=== PATIENT | female | born 1965 | race Caucasian/White ===

== ENCOUNTER 2017-09-11 21:10 | Inpatient (IN) | payer OTHER ==
[~2017-09-11] VITALS: Ht 154.9 cm; Wt 123.8 kg
--- NOTE | 2017-09-11 21:30 | NUR ---
PT ARRIVED BY AMBULANCE VIA GURNEY FROM [place]. PT IS AAOX4, SISTER IS AT THE BEDSIDE. ON 02 2L NC. IV ACCESS IS INTACT, PATENT AND ASYMPTOMATIC. NO SIGNS OF ACUTE DISTRESS. MRSA OF NARES COLLECTED. SKIN IS WARM TO TOUCH. RESPIRATIONS EVEN AND UNLABORED. SKIN COLOR APPROPRIATE TO ETHNICITY. URBAN CATH IN PLACE. FIVE INCISIONS ON THE ABDOMEN OPEN TO AIR POST GASTRIC BYPASS, AND INCISION ON BELLY BUTTON POST HERNIA REPAIR. PLAN OF CARE DISCUSSED, PT VERBALIZED UNDERSTANDING. BED IN LOW POSITION, BILATERAL HALF SIDE RAILS UP, CALL LIGHT WITHIN REACH, WILL CONTINUE TO MONITOR.
[2017-09-11 22:30] VITALS: BP 146/70
--- NOTE | 2017-09-11 22:50 | NUR ---
PAGED DR LONG, PT CURRENTLY HAS NO ORDERS IN PLACE. WILL WAIT FOR CALL BACK
[2017-09-11] MEDS: NACL 0.9% 1,000 ML IV SCH (23:04)
[2017-09-11] MEDS ORDERED: HYDROcodone/APAP 5/325 MG 1 TAB TAB PO PRN (23:05)
[2017-09-11] MEDS ORDERED: ACETAMINOPHEN 325 MG TAB PO PRN (23:05)
[2017-09-11] MEDS ORDERED: DEXTROSE 50% 50 ML SYR IVP PRN (23:05)
--- NOTE | 2017-09-11 23:19 | NUR ---
PT IS SLEEPING, EASY TO AROUSE. NO SIGNS OF ACUTE DISTRESS. BED IN LOW POSITION, BILATERAL HALF SIDE RAILS UP, CALL LIGHT WITHIN REACH, WILL CONTINUE TO MONITOR.
[2017-09-11 23:50] LABS: HEMATOCRIT 38.8 % (36-48); HEMOGLOBIN 12.7 g/dL (12.0-16.0); MEAN CORPUSCULAR HEMOGLOBIN 30 pg (27-31); MEAN CORPUSCULAR HGB CONC 33 g/dL (33-37); MEAN CORPUSCULAR VOLUME 90 fL (80-94); PLATELET COUNT (AUTO) 184 K/uL (140-450); RED BLOOD CELL COUNT(AUTO) 4.31 MIL/uL (4.20-5.40); RED CELL DISTRIBUTION WIDTH 13.2 % (11.6-13.7); WHITE BLOOD COUNT (AUTO) 9.2 K/uL (4.8-10.8)
[2017-09-12] VITALS: BP 147/70
[2017-09-12 00:06] LABS: LYMPHOCYTES % (MANUAL) 18 % (20-46); MONOCYTES % (MANUAL) 3 % (5-12)
[2017-09-12 00:19] LABS: ALBUMIN 2.5 g/dL (3.4-5.0); ANION GAP 10.9 (8-16); CREATININE 0.7 mg/dL (0.6-1.3); POTASSIUM 3.9 mmol/L (3.5-5.1); TOTAL BILIRUBIN 0.5 mg/dL (0.0-1.0)
[2017-09-12] MEDS: LORazepam 2 MG/ML VIAL IVP PRN ×2 (00:29→05:08)
[2017-09-12] MEDS: ONDANSETRON 4 MG/2 ML VIAL IVP PRN (00:29)
--- NOTE | 2017-09-12 00:30 | NUR ---
UNABLE TO GIVE NORCO, MEDICATION CRUSHED PER PT REQUEST, HOWEVER PT REFUSED TO TAKE ORAL MEDICATION DUE TO GASTRIC BYPASS SURGERY LAST MONDAY, PT STATES SHE FEARS SHE WILL THROW UP MEDICATION IF TAKEN BY MOUTH. ADMINISTERED ZOFRAN FOR NAUSEA AND ATIVAN FOR ANXIETY IVP, PT TOLERATED WELL. WILL CONTINUE TO MONITOR. NORCO WAS NOT ADMINISTERED AND WAS THEN WASTED WITH RN WITNESS.
--- NOTE | 2017-09-12 01:17 | NUR ---
PT IS SLEEPING, EASY TO AROUSE. NO SIGNS OF ACUTE DISTRESS, BED IN LOW POSITION, BILATERAL HALF SIDE RAILS UP, CALL LIGHT WITHIN REACH, WILL CONTINUE TO MONITOR.
--- NOTE | 2017-09-12 02:56 | NUR ---
PT IS SLEEPING, EASY TO AROUSE, NO SIGNS OF ACUTE DISTRESS. BED IN LOW POSITION, BILATERAL HALF SIDE RAILS UP, CALL LIGHT WITHIN REACH, WILL CONTINUE TO MONITOR.
[2017-09-12 04:00] VITALS: BP 149/76
[2017-09-12] MEDS: BLOOD GLUCOSE MONITORING 1 DEV DEV FS SCH ×3 (06:31→20:59)
[2017-09-12] MEDS: INSULIN LISPRO SLIDING SCALE 100 UNITS/ML VIAL SUBQ PRN ×3 (06:35→21:10)
[2017-09-12 06:57] LABS: BASOPHILS # (AUTO) 0.1 K/uL (0.00-0.22); BASOPHILS % (AUTO) 1.8 % (0.0-2.0); EOSINOPHILS % (AUTO) 0.5 % (0.0-4.0); HEMATOCRIT 39.1 % (36-48); HEMOGLOBIN 12.9 g/dL (12.0-16.0); LYMPHOCYTES % (AUTO) 12.8 % (20.5-51.1); MEAN CORPUSCULAR HEMOGLOBIN 30 pg (27-31); MEAN CORPUSCULAR HGB CONC 33 g/dL (33-37); MEAN CORPUSCULAR VOLUME 91 fL (80-94); MONOCYTES # (AUTO) 0.7 K/uL (0.8-1.0); MONOCYTES % (AUTO) 8.5 % (1.7-9.3); NEUTROPHILS # (AUTO) 6.4 K/uL (1.8-7.7); NEUTROPHILS % (AUTO) 76.4 % (42.2-75.2); PLATELET COUNT (AUTO) 194 K/uL (140-450); RED BLOOD CELL COUNT(AUTO) 4.28 MIL/uL (4.20-5.40); RED CELL DISTRIBUTION WIDTH 13.4 % (11.6-13.7); WHITE BLOOD COUNT (AUTO) 8.2 K/uL (4.8-10.8)
--- NOTE | 2017-09-12 07:05 | NUR ---
ENDORSED PT TO AM NURSE FOR CONTINUITY OF CARE. PT IN STABLE CONDITION.
[2017-09-12 07:07] LABS: ALBUMIN 2.5 g/dL (3.4-5.0); ANION GAP 7.7 (8-16); CARBON DIOXIDE 33.2 mmol/L (21-32); CREATININE 0.7 mg/dL (0.6-1.3); MAGNESIUM 2.1 mg/dL (1.8-2.4); POTASSIUM 3.9 mmol/L (3.5-5.1); TOTAL BILIRUBIN 0.5 mg/dL (0.0-1.0)
--- NOTE | 2017-09-12 07:07 | NUR ---
RECEIVED REPORT FROM RURAL MAIL CARRIER RN. PATIENT IS SLEEPING AT THIS TIME, HAS NASAL CANNULA AT 2L. NO SIGNS AND SYMPTOMS OF ACUTE RESPIRATORY DISTRESS NOTED AT THIS TIME. PATIENT HAS NS INFUSING AT 75 ML/HR TO RIGHT AC 20G, SITE IS CLEAN, DRY, PATENT AND INTACT. BED ALARM IS ON, BED IN LOWEST POSITION, SIDERAILS UP X3, CALL LIGHT PLACED WITHIN REACH. WILL CONTINUE TO MONITOR PATIENT.
[2017-09-12 08:00] VITALS: BP 151/73
--- NOTE | 2017-09-12 08:50 | NUR ---
WOUND CARE EVALUATION NOTE: REASON FOR EVALUATION ABDOMINAL WOUNDS COMPLETE SKIN ASSESSMENT DONE ON THIS 52 Y/O FEMALE PATIENT ADMITTED TO [facility], PT IS CONFUSE AND LETHARGY ,UNABLE TO ANSWER QUESTIONS, AND ADMISSION H&P AND LABS ARE NOT AVAILABLE AT THIS TIME.CURRENT MEDS INCLUDE LORAZEPAM, INSULIN, AND ENOXAPARIN. SKIN WARM TO TOUCH WNL, SKIN TURGOR GOOD. CAPILLARY REFILLED <3 SEC. TOENAILS ARE SHORT, NO HAIR GROWTH, BILATERAL DORSAL PEDAL PULSES PRESENT. FC #[id number] PATENT WITH MODERATE AMOUNT OF YELLOW CLEAR URINE OUTPUT NOTICE. PLAN OF CARE DISCUSSED WITH PRIMARY RN. INTEGUMENTARY: BILATERAL LOWER EXTREMITIES -DRYNESS S/P GASTRIC BYPASS WITH 5 CLOSED INCISIONS LARGEST MEASUREMENT 0.3X 4 CM AND SMALLEST 0.3X1.5 CM, DRY AND CLEAN, NO S/S INFECTION S/P HERNIA REPAIR DRY INCISION MEASURE 2CM IN LENGTH ON BELLY BUTTON, DRY AND CLEAN, NO S/S INFECTION RECOMMENDATIONS: -CLEANSE ABDOMINAL CLOSED INCISIONS WITH NS. PAT DRY AND APPLY BETADINE LUKE. STEFANIE QD -TURN AND REPOSITION PATIENT Q 2H -ASSESS AND MONITOR SKIN CONDITION DURING POSITION CHANGE -OFFLOAD BILATERAL HEELS BY PLACING PILLOWS UNDER CALVES AT ALL TIMES, UNLESS OTHERWISE CONTRAINDICATED -PRESSURE REDISTRIBUTION SURFACE THERAPY -KEEP SKIN CLEAN AND DRY AT ALL TIMES. RECOMMENDATIONS DISCUSSED WITH PRIMARY RN AND DR. PEREZ WILL FOLLOW UP PATIENT Q7- 10 DAYS AND PRN. PLEASE CONTACT WOUND CARE NURSE FOR ANY CONCERNS, QUESTIONS AND CHANGES IN SKIN CONDITION.
--- NOTE | 2017-09-12 09:21 | NUR ---
PATIENT HAS BEEN SCREENED AND CATEGORIZED HIGH NUTRITION RISK. PATIENT WILL BE SEEN WITHIN 1-2 DAYS OF ADMISSION. 09/12/17-09/13/[address]
[2017-09-12] MEDS: ENOXAPARIN 40 MG/0.4 ML SYR SUBQ SCH (09:50)
[2017-09-12 12:00] VITALS: BP 158/88
[2017-09-12] MEDS: NACL 0.9% 1,000 ML IV SCH (12:24)
[2017-09-12] MEDS: NACL 0.9% IRR 250 ML BOTTLE IR SCH (13:00)
--- NOTE | 2017-09-12 13:45 | NUR ---
CLINICAL REVIEW FAXED TO [facility] AT [phone]
[2017-09-12 16:00] VITALS: BP 154/79
[2017-09-12] MEDS ORDERED: DEXTROSE 50% 50 ML SYR IVP PRN (17:50)
[2017-09-12] MEDS ORDERED: PRAV40TA4 PO (17:56)
[2017-09-12] MEDS ORDERED: HYDR12.543 PO (17:56)
[2017-09-12] MEDS ORDERED: OMEP20EC6 PO (17:56)
[2017-09-12] MEDS ORDERED: LOSA100T25 (17:56)
--- NOTE | 2017-09-12 19:28 | NUR ---
ENDORSED PATIENT TO PUBLIC HEALTH PROGRAM MANAGER RN FOR CONTINUITY OF CARE. PATIENT IN STABLE CONDITION.
--- NOTE | 2017-09-12 19:29 | NUR ---
RECEIVED REPORT FROM DAY SHIFT RN AT PT BEDSIDE FOR CONTINUITY OF CARE. PT IS A/OX4, ON 2L O2 VIA NASAL CANNULA. PT HAS A LEFT HAND IV 22G INFUSING NS@75ML/HR. PT HAS 5 ABDOMINAL INCISIONS S/P GASTRIC BYPASS. SAFETY PRECAUTIONS IN PLACE. UPDATED BOARD. DISCUSSED PLAN OF CARE WITH PT, PT VERBALIZED UNDERSTANDING. VITAL SIGNS WITHIN NORMAL LIMITS. PT IN STABLE CONDITION, NO SIGNS OF DISTRESS NOTED. BED IN LOW POSITION, CALL LIGHT WITHIN REACH. WILL CONTINUE TO MONITOR.
[2017-09-12 20:00] VITALS: BP 152/67
[2017-09-12] MEDS: HYDROcodone/APAP 5/325 MG 1 TAB TAB PO PRN (21:00)
[2017-09-12] MEDS: INSULIN DETEMIR 100 UNITS/ML 10 ML VIAL SUBQ SCH (21:03)
--- NOTE | 2017-09-12 21:15 | NUR ---
PT. PLACED ON BIPAP /8 RATE 14 FIO2 AT 25%, MACHINE ONLY GOES BY 5% INCREMENTS. PT STILL SNORING LOUD AT THESE SETTING. SAO2 FLUCTUATES FROM 87% TO 98% HR 85 BS CLEAR UPPER LOBES AND DECREASED AT BASES WHEN PT NOT SNORING
[2017-09-13] VITALS: BP 157/72
[2017-09-13] MEDS: NACL 0.9% 1,000 ML IV SCH ×3 (01:44→17:30)
[2017-09-13 04:00] VITALS: BP 148/78
--- NOTE | 2017-09-13 05:09 | NUR ---
PT KEEPS TAKING OFF BIPAP MASK THROUGHOUT ENTIRE RESTAURANT MANAGER. ADVISED PT TO LEAVE MASK ON AND SHE VERBALIZED UNDERSTANDING. PT IN STABLE CONDITION, NO SIGNS OF DISTRESS NOTED. BED IN LOW POSITION, CALL LIGHT WITHIN REACH. WILL CONTINUE TO MONITOR.
[2017-09-13] MEDS: BLOOD GLUCOSE MONITORING 1 DEV DEV FS SCH ×4 (06:51→20:13)
[2017-09-13] MEDS: HYDROcodone/APAP 5/325 MG 1 TAB TAB PO PRN (06:51)
[2017-09-13] MEDS: INSULIN LISPRO SLIDING SCALE 100 UNITS/ML VIAL SUBQ PRN ×2 (06:52→17:34)
[2017-09-13 06:59] LABS: ALBUMIN 2.3 g/dL (3.4-5.0); ANION GAP 6.6 (8-16); CREATININE 0.5 mg/dL (0.6-1.3); MAGNESIUM 2.1 mg/dL (1.8-2.4); PHOSPHORUS 2.3 mg/dL (2.5-4.9); POTASSIUM 3.6 mmol/L (3.5-5.1); TOTAL BILIRUBIN 0.6 mg/dL (0.0-1.0)
--- NOTE | 2017-09-13 07:32 | NUR ---
ENDORSED PT TO DAY SHIFT NURSE FOR CONTINUITY OF CARE. PT IN STABLE CONDITION, WITHOUT SIGNS OF DISTRESS.
--- NOTE | 2017-09-13 07:33 | NUR ---
RECEIVED REPORT FROM RECREATION WORKER NURSE AT BEDSIDE FOR CONTINUITY OF CARE. PT IS SLEEPING. SNORING. NOTED THE NC O2 AT 2L. V/S WITHIN NORMAL RANGE. BP SLIGHT ELEVATED. NO SIGNS OF RESPIRATORY DISTRESS. SKIN IS INTACT. PRIOR SCAR FROM GASTRIC BYPASS. CPAP AND BIPAP MACHINE AT BEDSIDE. NOTED THE R HAND 20G IV, NS AT 75 ML/HR INFUSING. SCD'S IN PLACE. BED ALARM IS ON. PT'S MEDS FROM HOME IS IN MED ROOM. WILL GIVE TO DR. PEREZ WHEN HE ARRIVES FOR REVIEW. NEED TO OBTAIN RECORDS FROM SLEEP STUDY IN [place]. WILL F/U WITH FAMILY. NO SIGNS OF DISTRESS.
[2017-09-13 08:00] VITALS: BP 164/77
[2017-09-13] MEDS: LOSARTAN 50 MG TAB PO SCH (08:30)
[2017-09-13] MEDS: HYDROCHLOROTHIAZIDE 25 MG TAB PO SCH (08:31)
[2017-09-13] MEDS: PANTOPRAZOLE 40 MG TABEC PO SCH (08:32)
[2017-09-13] MEDS: ENOXAPARIN 40 MG/0.4 ML SYR SUBQ SCH (08:33)
--- NOTE | 2017-09-13 08:40 | NUR ---
CRUSH MORNING MEDS. MIXED IN APPLE SAUCE. ADMINISTERED MEDS. PT TOLERATED WELL.
--- NOTE | 2017-09-13 09:00 | NUR ---
DR PEREZ CAME IN AND SAW PT. FAMILY MEMBERS WERE PRESENT. ANSWERED QUESTIONS. RETURNED ALL HOME MEDS TO FAMILY TO TAKE HOME. MD REQUESTED SLEEP STUDY AND SEE IF THEY CAN ORDER A CPAP MACHINE FOR HOME, IF NOT HE WILL ORDER. WE WILL MONITOR LABS TODAY. POSSIBLY DC TOMORROW.
--- NOTE | 2017-09-13 09:20 | NUR ---
REMOVED URBAN CATH ORDERED BY DR PEREZ. PT TOLERATED WELL.
--- NOTE | 2017-09-13 09:40 | NUR ---
ZAKIYA NOTE SPOKE W/ SCOTT FROM [employer]. WILL CALL BACK IN REGARDS TO BIPAP ONCE ORDER AND CLINICALS HAVE BEEN FAXED AND RECEIVED BY [facility].
--- NOTE | 2017-09-13 11:10 | NUR ---
PT HAD A BM. STONE BANKER CLEANED AND CHANGED PT. PT TOLERATED WELL. SISTER AT BEDSIDE.
--- NOTE | 2017-09-13 11:50 | NUR ---
INCISION FROM PRIOR SURGERY IS LEAKING. WILL NOTIFY . ADMINISTERED ISLAND DRESSING X2.
[2017-09-13 12:00] VITALS: BP 149/80
--- NOTE | 2017-09-13 12:05 | NUR ---
DR PEREZ CALLED. NOTIFIED HIM OF THE SLEEP CLINIC AND THEY ARE NOT CONTRACTED WITH HER INS. DR PEREZ WILL NEED TO ORDER CPAP. WILL CONTACT FOR DM SUPPLIER.
[2017-09-13] MEDS: NACL 0.9% IRR 250 ML BOTTLE IR SCH (13:00)
--- NOTE | 2017-09-13 14:31 | NUR ---
09/13/17 RD INITIAL ASSESSMENT COMPLETED PLEASE REFER TO NUTRITION ASSESSMENT UNDER CARE ACTIVITY FOR ESTIMATED NUTRITIONAL NEEDS. 1. CONTINUE CLEAR LIQUID DIET TOLERATED PER MD 2. WHEN MEDICALLY APPROPRIATE CONSIDER ADVANCE DIET TOLERATED TO CCHO 60 GM DIET WITH NO CONCENTRATED SWEETS 3. RD OFFERED PT DIET EDUCATION RELATED TO GASTRIC BYPASS SURGERY; PT DECLINED. 4. RD TO FOLLOW-UP 3-5 DAYS, MODERATE RISK KEO MERCADO RD
--- NOTE | 2017-09-13 15:16 | NUR ---
CM NOTE PER CINDY FROM [facility], HAS NOT RECEIVED ORDER SINCE THIS AM. RE-FAXED ORDER FOR BIPAP.
--- NOTE | 2017-09-13 15:38 | NUR ---
CM NOTE CONCURRENT REVIEW FAXED TO [facility] (FAX# [phone], ATTN: MIREYA #[phone]) & [facility] (FAX# [phone], C: [phone])
--- NOTE | 2017-09-13 15:49 | NUR ---
PT JUST FINISHED UP WITH PT. PT TOLERATED WELL. PT IS MORE ORIENTED AND ALERT, MORE STEADY ON FEET. SITTING ON CHAIR. ASSISTED BACK INTO BED. NO COMPLAINTS AT THIS TIME. V/S WITHIN NORMAL RANGE. WILL CONTINUE TO MONITOR PT.
[2017-09-13 16:00] VITALS: BP 146/70
--- NOTE | 2017-09-13 18:30 | NUR ---
CHANGED ONE OF THE DRESSINGS ON HER INCISION. GOT SOAKED WITH DRAINAGE. WILL NOTIFY
--- NOTE | 2017-09-13 19:20 | NUR ---
ENDORSED PT TO THE VP STRATEGIC PARTNERSHIPS NURSE AT BEDSIDE FOR CONTINUITY OF CARE. PT IN STABLE CONDITION.
[2017-09-13 20:00] VITALS: BP 156/70
[2017-09-13] MEDS: INSULIN DETEMIR 100 UNITS/ML 10 ML VIAL SUBQ SCH (20:13)
[2017-09-14] VITALS: BP 141/65
--- NOTE | 2017-09-14 00:45 | NUR ---
ASSISTED PT TO BEDSIDE COMMODE AND THE BOTTOM LEFT ABDOMINAL INCISION STARTED DRAINING A MODERATE AMOUNT OF SEROSANGUINEOUS FLUID. CLEANED PT AND CHANGED BOTH DRESSINGS. PT TOLERATED WELL. PT IN STABLE CONDITION, NO SIGNS OF DISTRESS NOTED. BED IN LOW POSITION, CALL LIGHT WITHIN REACH. WILL CONTINUE TO MONITOR.
[2017-09-14] MEDS: HYDROcodone/APAP 5/325 MG 1 TAB TAB PO PRN (02:32)
--- NOTE | 2017-09-14 02:35 | NUR ---
PT C/O OF 6/10 PAIN AND ASKED FOR PAIN MEDICATION. PT ASKED FOR MEDICATION TO BE CRUSHED. ADMINISTERED NORCO AND CRUSHED PILL. PT TOLERATED WELL. WILL REASSESS PAIN IN ONE HOUR. PT IN STABLE CONDITION, NO SIGNS OF DISTRESS NOTED. BED IN LOW POSITION, CALL LIGHT WITHIN REACH. WILL CONTINUE TO MONITOR.
[2017-09-14 04:00] VITALS: BP 123/71
--- NOTE | 2017-09-14 04:00 | NUR ---
CPAP ALARM ON, TRIED ADJUSTING MASK BUT ALARM GOING OFF AGAIN. CALLED RT GILBERT, SHE SAID SHE WOULD BE HERE SOON. PT IN STABLE CONDITION, NO SIGNS OF DISTRESS NOTED.
[2017-09-14] MEDS: BLOOD GLUCOSE MONITORING 1 DEV DEV FS SCH (06:56)
--- NOTE | 2017-09-14 07:30 | NUR ---
RECEIVED PT IN BED. AWAKE. ALERT ORIENTED X4. NO SOB NOTED. DENIES ANY PAIN OR DISCOMFORT AT THIS TIME. PT ON BEDREST. SAFETY PRECAUTION IN PLACE. CALL LIGHT WITHIN REACH.
--- NOTE | 2017-09-14 07:33 | NUR ---
ENDORSED PT TO DAY SHIFT RN FOR CONTINUITY OF CARE. PT IN STABLE CONDITION.
[2017-09-14 08:00] VITALS: BP 104/56
--- NOTE | 2017-09-14 08:16 | NUR ---
RECEIVED PT ON NC 2LPM ANALI WELL AWAKE ALERT
[2017-09-14 08:34] LABS: PROTHROMBIN TIME 10.8 secs (10.8-13.4)
[2017-09-14 08:43] LABS: ALBUMIN 2.5 g/dL (3.4-5.0); ANION GAP 9.8 (8-16); BILIRUBIN,DIRECT 0.2 mg/dL (0.0-0.3); CARBON DIOXIDE 33.5 mmol/L (21-32); CREATININE 0.6 mg/dL (0.6-1.3); POTASSIUM 3.3 mmol/L (3.5-5.1); TOTAL BILIRUBIN 0.5 mg/dL (0.0-1.0)
[2017-09-14] MEDS: LOSARTAN 50 MG TAB PO SCH (09:00)
[2017-09-14] MEDS: HYDROCHLOROTHIAZIDE 25 MG TAB PO SCH (09:34)
[2017-09-14] MEDS: PANTOPRAZOLE 40 MG TABEC PO SCH (09:34)
[2017-09-14] MEDS: ONDANSETRON 4 MG/2 ML VIAL IVP PRN (09:35)
[2017-09-14] MEDS: ENOXAPARIN 40 MG/0.4 ML SYR SUBQ SCH (09:43)
--- NOTE | 2017-09-14 09:43 | NUR ---
CM NOTE PER ANGELA FROM [facility], BIPAP ORDER IS IN THEIR SYSTEM AND AWAITING APPROVAL FROM CM. WAS TOLD TO CHECK BACK AFTER 1200 FOR STATUS UPDATE. MADE AWARE THAT TODAY'S CLINICALS & NEW ORDER FOR [facility] WAS FAXED OVER AND WILL CALL BACK FOR UPDATES.
--- NOTE | 2017-09-14 10:00 | NUR ---
PHOTO TAKEN ON ABDOMEN SURGICAL INCISIONS AND IN TO CHART. GOOD SKIN CARE PROVIDED.
--- NOTE | 2017-09-14 10:16 | NUR ---
CM NOTE CONCURRENT REVIEW FAXED TO [facility] (FAX# [phone], C: [phone])
[2017-09-14 10:58] VITALS: BP 141/69
--- NOTE | 2017-09-14 11:12 | NUR ---
DISCHARGE TEACHINGS AND HEALTH INSTRUCTIONS GIVEN AND EXPLAINED TO PT. PT VERBALIZED UNDERSTANDING. PT SIGNED DISCHARGE PAPERS AND VERBALIZED SHE WILL BE FOLLOWING UP WITH HER PCP TODAY AT [facility]. NO SOB NOTED. AT BEDSIDE. DENIES ANY PAIN OR DISCOMFORT AT THIS TIME. IV CANNULA REMOVED AND INTACT. NAME ARMBAND REMOVED. TELEMONITOR REMOVED. WHEELED PT OUT PER PRODUCTION LINE TECHNICIAN ASSIST GOING TO THE HOSPITAL PARKING LOT TO THEIR PRIVATE OWNED VEHICLE. PT DISCHARGED ON STABLE CONDITION. PROVIDED PT WITH DISCHARGE PACKET.
--- NOTE | 2017-09-14 13:13 | NUR ---
CM NOTE SPOKE W/ JAHAIRA FROM [facility] RE. UPDATE ON BIPAP. CM THAT IS WORKING ON AUTH WILL CALL BACK ON UPDATE.
--- NOTE | 2017-09-14 16:00 | NUR ---
CM NOTE PER CINDY FROM [employer], PATIENT APPROVED FOR BIPAP & [facility]ALKER; [employer] WILL BE IN CONTACT W/ PATIENT RE. DELIVERY. AUTH# [id number]
== END 2017-09-14 11:15 | disposition home or self-care (01) | DRG 133 ==
LOC: MTU 21:10
PROVIDERS: ADMIT Hospitalist; ATTEND Hospitalist
PROC: 5A09357 Assistance with Respiratory Ventilation, Less than 24 Consecutive Hours, Continuous Positive Airway Pressure (ICD-10-PCS; principal; 2017-09-12)
DX: J96.90 Respiratory failure, unspecified, unspecified whether with hypoxia or hypercapnia (principal); N17.9 Acute kidney failure, unspecified; E11.65 Type 2 diabetes mellitus with hyperglycemia; K76.0 Fatty (change of) liver, not elsewhere classified; E66.2 Morbid (severe) obesity with alveolar hypoventilation; I10 Essential (primary) hypertension; R94.5 Abnormal results of liver function studies; E78.5 Hyperlipidemia, unspecified; Z98.84 Bariatric surgery status; Z79.899 Other long term (current) drug therapy; Z68.43 Body mass index [BMI] 50.0-59.9, adult; Z91.040 Latex allergy status
CPT/HCPCS: 36415; 36600; 80053; 80076; 82803; 82948; 83036; 83735; 84100; 85025; 85610; 87081; 94660; 97116; 97140; 97530; J1650; J1815; J2060; J2405; J7030

== ENCOUNTER 2023-01-20 08:17 | Day surgery (SDC) | payer OTHER ==
[~2023-01-20] VITALS: Ht 154.9 cm; Wt 79.4 kg
[~2023-01-20 08:17] MED LIST: HYDR12.543 PO; LOSA100T51; OMEP-283 PO
[2023-01-20] MEDS ORDERED: fentaNYL citrate 0.05 MG/ML VIAL ONE (09:50)
[2023-01-20] MEDS ORDERED: MIDAZOLAM 5 MG/5 ML VIAL ONE (09:51)
== END 2023-01-20 11:40 | disposition home or self-care (01) ==
LOC: MMU 08:17 → MDS 08:17
PROVIDERS: ATTEND Internal Medicine Gastroenterology
DX: R10.13 Epigastric pain (principal); K44.9 Diaphragmatic hernia without obstruction or gangrene; I10 Essential (primary) hypertension; E11.9 Type 2 diabetes mellitus without complications; E78.5 Hyperlipidemia, unspecified; Z90.710 Acquired absence of both cervix and uterus; Z90.49 Acquired absence of other specified parts of digestive tract; Z79.84 Long term (current) use of oral hypoglycemic drugs; Z79.899 Other long term (current) drug therapy; Z87.891 Personal history of nicotine dependence; Z91.040 Latex allergy status; Z98.84 Bariatric surgery status; Z98.42 Cataract extraction status, left eye; Z98.41 Cataract extraction status, right eye; Z98.0 Intestinal bypass and anastomosis status; Z20.822 Contact with and (suspected) exposure to COVID-19
CPT/HCPCS: 43235; 87426; J2250; J3010